=== PATIENT | male | born 1965 | race Caucasian/White ===

== ENCOUNTER 2016-10-29 00:35 | Emergency (ER) | payer BC ==
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
[2016-10-29] MEDS ORDERED: Sodium Chloride 0.9% 10 ML Syringe FLUSH PRN (02:13)
[2016-10-29] MEDS ORDERED: cefTRIAXone 1 GM in Sodium Chloride 0.9% 100 ML IV ONE (02:14)
[2016-10-29] MEDS ORDERED: Ciprofloxacin 0.3% Ophth Soln 2.5 ML Bottle EYERT ONE (02:39)
[2016-10-29] MEDS ORDERED: Acetaminophen/oxyCODONE 325-5 MG Tab PO ONE (02:39)
[2016-10-29] MEDS ORDERED: Ketorolac 0.5% Ophth Soln 5 ML Bottle EYERT ONE (02:40)
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
--- NOTE | 2016-10-29 07:53 | CT ---
CT paranasal sinuses Technique: Multiple axial sections were obtained through the paranasal sinuses. Reconstructed coronal and sagittal images were reviewed. Findings: Air-fluid level noted within the left frontal sinus. Mild areas of mucosal thickening are scattered within the ethmoid sinuses. Minimal mucosal thickening is seen within the sphenoid sinus. Opacification noted of the left maxillary sinus. Small air-fluid level is noted within the right maxillary sinus. Visualized mastoid sinuses are clear. Middle ear cavities are clear. Surrounding bony structures are intact. Left maxillary ostia is opacified with mucosal thickening. Impression: 1. Diffuse mucosal thickening as described above with several air-fluid levels compatible with sinusitis. Diagnostic code #3 I agree with preliminary report issued by Serious Parody (preliminary report dictated on 10/29/16, 2:57 AM Central Time)
== END 2016-10-29 03:20 | disposition home or self-care (01) ==
LOC: JD.ED 00:35
DX: J01.40 Acute pansinusitis, unspecified (principal); Z79.899 Other long term (current) drug therapy; E11.40 Type 2 diabetes mellitus with diabetic neuropathy, unspecified; Z79.4 Long term (current) use of insulin; I10 Essential (primary) hypertension; Z99.2 Dependence on renal dialysis
CPT/HCPCS: 36415; 70486; 71020; 80053; 83880; 85025; 86140; 87804; 96365; 99284; J0696; J7030; J7050

== ENCOUNTER 2018-01-14 07:23 | Day surgery (SDC) | payer BC ==
[~2018-01-14 07:23] MED LIST: Cefuroxime 10 MG/ML SYRINGE EYERT SCH; Lidocaine 1% PF 2 ML SDV INJECT SCH; Pilocarpine 4% Ophth Soln 15 ML Bot EYERT SCH
[2018-01-14] MEDS: Polymyxin B/Trimethoprim 10 ML Bottle EYERT SCH ×3 (07:33→08:56)
[2018-01-14] MEDS: Brimonidine 0.2% Ophth Soln 5 ML Bottle EYERT SCH ×3 (07:37→08:56)
[2018-01-14] MEDS: Phenylephrine 2.5% Ophth Soln 2 ML Bot EYERT SCH ×5 (07:41→08:41)
[2018-01-14] MEDS: Tropicamide 1% Ophth Soln 3 ML Bottle EYERT SCH ×4 (07:45→08:22)
--- NOTE | 2018-01-14 07:45 | PCM.PREANE ---
Preanesthetic Assessment - Anesthesia/Transfusion/Family Hx Anesthesia History: Prior Anesthesia Without Reaction Family History of Anesthesia Reaction: No Transfusion History: Prior Transfusion Without Reaction - Review of Systems General: No Symptoms Pulmonary: No Symptoms Cardiovascular: Dyspnea on Exertion Gastrointestinal: No Symptoms Neurological: Numbness (feet and hands) Other: Reports: Diabetes (DMII) - Physical Assessment NPO Status Date: 01/13/18 NPO Status Time: 21:00 Pulse: 78 O2 Sat by Pulse Oximetry: 95 Respiratory Rate: 16 Blood Pressure: 208/95 Temperature: 36.8 C Vital Signs: Last Vital Signs Temp 36.8 C 01/14/18 07:25 Pulse 78 01/14/18 07:25 Resp 16 01/14/18 07:25 BP 208/95 H 01/14/18 07:25 Pulse Ox 95 01/14/18 07:25 Height: 1.83 m Weight: 163.293 kg ASA Class: 3 Mental Status: Alert & Oriented x3 Airway Class: Mallampati = 3 Dentition: Reports: Normal Dentition Thyro-Mental Finger Breadths: 3 Mouth Opening Finger Breadths: 2 ROM/Head Extension: Full Lungs: Clear to Auscultation, Normal Respiratory Effort Cardiovascular: Regular Rate, Regular Rhythm - Allergies Allergies/Adverse Reactions: Allergies Allergy/AdvReac Type Severity Reaction Status Date / Time No Known Allergies Allergy Verified 01/13/18 15:29 - Blood Blood Available: No Product(s) Available: None - Anesthesia Plan Pre-Op Medication Ordered: None - Acknowledgements Anesthesia Type Planned: MAC Pt an Appropriate Candidate for the Planned Anesthesia: Yes Alternatives and Risks of Anesthesia Discussed w Pt/Guardian: Yes Pt/Guardian Understands and Agrees with Anesthesia Plan: Yes PreAnesthesia Questionnaire HEENT History: Reports: Other (See Below) Other HEENT History: left eye hemmorage-drained Cardiovascular History: Reports: Hypertension Genitourinary History: Reports: Dialysis, Diabetic Nephropathy Other Genitourinary History: m-w-f; dialysis shunt to the left inner wrist area ; also has a catheter to the left chest wall for dialysis and currently using both sites for dialysis Endocrine/Metabolic History: Reports: Diabetes, Type II Oncologic (Cancer) History: Reports: None - Past Surgical History GI Surgical History: Reports: Appendectomy, Colon, Other (See Below) Musculoskeletal Surgical History: Reports: Other (See Below) - HOME MEDS Home Medications: Home Meds amLODIPine [Norvasc] 10 mg PO DAILY 03/22/16 [History] Calcium Acetate [Calphron] 3 tab PO DAILY 01/13/18 [History] Insulin Aspart [NovoLOG] 1 - 50 units SQ ASDIRECTED PRN 01/13/18 [History] Insulin Glargine,Hum.Rec.Anlog [Toujeo Solostar] 55 units SQ QAM 01/13/18 [ History] Sevelamer Carbonate [Renvela] 800 mg PO DAILY 01/13/18 [History] - CURRENT (IN HOUSE) MEDS Current Meds: Current Medications Brimonidine Tartrate (Alphagan 0.2% Ophth Soln) 0 ml EYERT ASDIRECTED IVIS Stop: 01/14/18 18:00 Cefuroxime Sodium (Zinacef) 0 mg EYERT ASDIRECTED IVIS Stop: 01/14/18 18:00 Lidocaine HCl (Xylocaine-Mpf 1%) 0 ml INJECT ASDIRECTED IVIS Stop: 01/14/18 18:00 Phenylephrine HCl (Bull-Synephrine 2.5% Ophth Soln) 0 ml EYERT ASDIRECTED IVIS Stop: 01/14/18 18:00 Pilocarpine HCl (Pilocar 4% Ophth Soln) 0 ml EYERT ASDIRECTED IVIS Stop: 01/14/18 18:00 Polymyxin/Trimethoprim Sulfate (Polytrim Ophth Soln) 0 ml EYERT ASDIRECTED IVIS Stop: 01/14/18 18:00 Last Admin: 01/14/18 07:33 Dose: 1 drop Tetracaine HCl (Tetracaine 0.5% Steri-Unit Sophie) 0 ml EYERT ASDIRECTED IVIS Stop: 01/14/18 18:00 Tropicamide (Mydriacyl 1% Ophth Soln) 0 ml EYERT ASDIRECTED IVIS Stop: 01/14/18 18:00
[2018-01-14] MEDS: Tetracaine HCl/PF 0.5% 4 ML Bottle EYERT SCH ×2 (08:26→08:47)
[2018-01-14 10:14] VITALS: BP 208/95
--- NOTE | 2018-01-14 10:14 | PCM48HPAN ---
Post Anesthesia Note - EVALUATION WITHIN 48HRS OF ANESTHETIC Vital Signs in Normal Range: Yes Patient Participated in Evaluation: Yes Respiratory Function Stable: Yes Airway Patent: Yes Cardiovascular Function Stable: Yes Hydration Status Stable: Yes Pain Control Satisfactory: Yes Nausea and Vomiting Control Satisfactory: Yes Mental Status Recovered: Yes Pulse Rate: 78 Resp Rate: 20 Temperature: 36.8 C Blood Pressure: 208/95
== END 2018-01-14 09:10 | disposition home or self-care (01) ==
LOC: JD.SDS 07:23
PROVIDERS: ATTEND Ophthalmology
DX: H25.813 Combined forms of age-related cataract, bilateral (principal); H31.093 Other chorioretinal scars, bilateral; H35.373 Puckering of macula, bilateral; H02.831 Dermatochalasis of right upper eyelid; H02.834 Dermatochalasis of left upper eyelid; E10.3313 Type 1 diabetes mellitus with moderate nonproliferative diabetic retinopathy with macular edema, bilateral; I10 Essential (primary) hypertension; Z79.4 Long term (current) use of insulin; Z79.899 Other long term (current) drug therapy; Z90.49 Acquired absence of other specified parts of digestive tract; Z98.890 Other specified postprocedural states; Z83.518 Family history of other specified eye disorder
CPT/HCPCS: A9270-GY; C1780; J0697; J2001

== ENCOUNTER 2018-12-07 07:41 | Day surgery (SDC) | payer BC, OTHER ==
[2018-12-07] MEDS: Polymyxin B/Trimethoprim 10 ML Bottle EYELF SCH ×4 (08:18→10:24)
[2018-12-07] MEDS: Brimonidine 0.2% Ophth Soln 5 ML Bottle EYEBOTH SCH ×7 (08:23→10:38)
[2018-12-07] MEDS: Phenylephrine 2.5% Ophth Soln 2 ML Bot EYEBOTH SCH ×10 (08:28→10:01)
[2018-12-07] MEDS: Tropicamide 1% Ophth Soln 15 ML Bottle EYEBOTH SCH ×8 (08:33→09:32)
--- NOTE | 2018-12-07 08:38 | PCM.PREANE ---
Preanesthetic Assessment - Anesthesia/Transfusion/Family Hx Anesthesia History: Prior Anesthesia Without Reaction Family History of Anesthesia Reaction: No Transfusion History: Prior Transfusion Without Reaction - Review of Systems General: No Symptoms Pulmonary: No Symptoms Cardiovascular: No Symptoms Gastrointestinal: No Symptoms Neurological: No Symptoms Other: Reports: None - Physical Assessment NPO Status Date: 12/06/18 NPO Status Time: 18:00 Pulse: 68 O2 Sat by Pulse Oximetry: 96 Respiratory Rate: 16 Blood Pressure: 194/91 Temperature: 98.3 C Vital Signs: Last Vital Signs Temp 36.8 C 12/07/18 07:55 Pulse 68 12/07/18 07:55 Resp 16 12/07/18 07:55 BP 194/91 H 12/07/18 07:55 Pulse Ox 96 12/07/18 07:55 Height: 1.83 m Weight: 158.757 kg ASA Class: 3 Mental Status: Alert & Oriented x3 Airway Class: Mallampati = 3 Dentition: Reports: Normal Dentition Thyro-Mental Finger Breadths: 3 Mouth Opening Finger Breadths: 2 ROM/Head Extension: Full Lungs: Clear to Auscultation, Normal Respiratory Effort, Decreased Breath Sounds Cardiovascular: Regular Rate, Regular Rhythm - Allergies Allergies/Adverse Reactions: Allergies Allergy/AdvReac Type Severity Reaction Status Date / Time No Known Allergies Allergy Verified 12/06/18 14:43 - Anesthesia Plan Beta Kena: Propranolol Med Last Dose Date: 12/07/18 Med Last Dose Time: 08:30 - Acknowledgements Anesthesia Type Planned: MAC Pt an Appropriate Candidate for the Planned Anesthesia: Yes Alternatives and Risks of Anesthesia Discussed w Pt/Guardian: Yes Pt/Guardian Understands and Agrees with Anesthesia Plan: Yes PreAnesthesia Questionnaire HEENT History: Reports: Cataract, Other (See Below) Other HEENT History: left eye hemmorage-drained Cardiovascular History: Reports: Hypertension Respiratory History: Reports: None Gastrointestinal History: Reports: None Genitourinary History: Reports: Dialysis, Diabetic Nephropathy Other Genitourinary History: m-w-f; dialysis shunt to the left inner wrist area ; also has a catheter to the left chest wall for dialysis and currently using both sites for dialysis Endocrine/Metabolic History: Reports: Diabetes, Type I (BS 257 @ 0832) Oncologic (Cancer) History: Reports: None - Past Surgical History HEENT Surgical History: Reports: Cataract Surgery GI Surgical History: Reports: Appendectomy, Colon, Other (See Below) Musculoskeletal Surgical History: Reports: Other (See Below) - SUBSTANCE USE Smoking Status *Q: Never Smoker - HOME MEDS Home Medications: Home Meds Insulin Aspart [NovoLOG] 1 - 50 units SQ ASDIRECTED PRN 01/13/18 [History] Insulin Glargine,Hum.Rec.Anlog [Toujeo Solostar] 50 units SQ QAM 01/13/18 [ History] Sevelamer Carbonate [Renvela] 800 mg PO DAILY 01/13/18 [History] Propranolol [Inderal] 20 mg PO DAILY 12/06/18 [History] amLODIPine [Norvasc] 5 mg PO DAILY 12/06/18 [History] - CURRENT (IN HOUSE) MEDS Current Meds: Current Medications Brimonidine Tartrate (Alphagan 0.2% Ophth Soln) 0 ml EYEBOTH ASDIRECTED IVIS Stop: 12/07/18 18:00 Last Admin: 12/07/18 08:23 Dose: 1 drop Cefuroxime Sodium (Zinacef) 0 mg EYELF ASDIRECTED IVIS Stop: 12/07/18 18:00 Lidocaine HCl (Xylocaine-Mpf 1%) 0 ml INJECT ASDIRECTED IVIS Stop: 12/07/18 18:00 Phenylephrine HCl (Bull-Synephrine 2.5% Ophth Soln) 0 ml EYEBOTH ASDIRECTED IVIS Stop: 12/07/18 18:00 Last Admin: 12/07/18 08:28 Dose: 1 drop Pilocarpine HCl (Pilocar 4% Ophth Soln) 0 ml EYELF ASDIRECTED IVIS Stop: 12/07/18 18:00 Polymyxin/Trimethoprim Sulfate (Polytrim Ophth Soln) 0 ml EYELF ASDIRECTED IVIS Stop: 12/07/18 18:00 Last Admin: 12/07/18 08:18 Dose: 1 drop Tetracaine HCl (Tetracaine 0.5% Steri-Unit Sophie) 0 ml EYELF ASDIRECTED IVIS Stop: 12/07/18 18:00 Tropicamide (Mydriacyl 1% Ophth Soln) 0 ml EYEBOTH ASDIRECTED IVIS Stop: 12/10/18 18:00
[2018-12-07] MEDS: Cefuroxime 10 MG/ML SYRINGE EYELF SCH ×2 (09:29→10:20)
[2018-12-07] MEDS: Lidocaine 1% PF 2 ML SDV INJECT SCH ×2 (09:29→10:10)
[2018-12-07] MEDS: Tetracaine HCl/PF 0.5% 4 ML Bottle EYELF SCH ×3 (09:29→10:15)
[2018-12-07] MEDS: Pilocarpine 4% Ophth Soln 15 ML Bot EYELF SCH ×2 (09:30→10:24)
--- NOTE | 2018-12-07 10:38 | PCM48HPAN ---
Post Anesthesia Note - EVALUATION WITHIN 48HRS OF ANESTHETIC Vital Signs in Normal Range: Yes Patient Participated in Evaluation: Yes Respiratory Function Stable: Yes Airway Patent: Yes Cardiovascular Function Stable: Yes Hydration Status Stable: Yes Pain Control Satisfactory: Yes Nausea and Vomiting Control Satisfactory: Yes Mental Status Recovered: Yes Pulse Rate: 68 Resp Rate: 16 Temperature: 98.3 C Blood Pressure: 194/91
[2018-12-07 10:54] VITALS: BP 171/79
== END 2018-12-07 10:45 | disposition home or self-care (01) ==
LOC: JD.SDS 07:41
PROVIDERS: ATTEND Ophthalmology
DX: E10.36 Type 1 diabetes mellitus with diabetic cataract (principal); H25.812 Combined forms of age-related cataract, left eye; H21.42 Pupillary membranes, left eye; H21.81 Floppy iris syndrome; H26.491 Other secondary cataract, right eye; H31.093 Other chorioretinal scars, bilateral; H35.373 Puckering of macula, bilateral; H02.834 Dermatochalasis of left upper eyelid; H02.831 Dermatochalasis of right upper eyelid; H52.31 Anisometropia; I10 Essential (primary) hypertension; E10.3293 Type 1 diabetes mellitus with mild nonproliferative diabetic retinopathy without macular edema, bilateral; E10.21 Type 1 diabetes mellitus with diabetic nephropathy; Z99.2 Dependence on renal dialysis; Z96.1 Presence of intraocular lens; Z98.41 Cataract extraction status, right eye; Z79.899 Other long term (current) drug therapy
CPT/HCPCS: 66821; 66982; A9270; C1780; J0697; J2001; 82962

== ENCOUNTER 2018-12-17 23:20 | Emergency (ER) | payer BC ==
[2018-12-17 23:32] VITALS: BP 203/97
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
[2018-12-18] MEDS ORDERED: Doxycycline 100 MG Cap PO ONE (02:09)
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
== END 2018-12-18 02:17 | disposition home or self-care (01) ==
LOC: JD.ED 23:20
DX: J40 Bronchitis, not specified as acute or chronic (principal); I12.0 Hypertensive chronic kidney disease with stage 5 chronic kidney disease or end stage renal disease; E11.22 Type 2 diabetes mellitus with diabetic chronic kidney disease; N18.6 End stage renal disease; E11.21 Type 2 diabetes mellitus with diabetic nephropathy; Z79.4 Long term (current) use of insulin; Z79.899 Other long term (current) drug therapy; Z99.2 Dependence on renal dialysis
CPT/HCPCS: 36415; 71046; 80048; 85007; 85027; 99285; A9270; 99283

== ENCOUNTER 2019-06-05 13:33 | Emergency (ER) | payer BC ==
[~2019-06-05 13:33] MED LIST changes: +Amiodarone/Dextrose,Iso-Osmotic 150 MG/100 ML Premix Bag IV ONE; +Amiodarone/Dextrose,Iso-Osmotic 360 MG/200 ML Premix Bag ONE; -Cefuroxime 10 MG/ML SYRINGE EYERT SCH; +EPINEPHrine 1:10,000 1 MG/10 ML Syringe ONE; -Lidocaine 1% PF 2 ML SDV INJECT SCH; -Pilocarpine 4% Ophth Soln 15 ML Bot EYERT SCH; +Sodium Bicarbonate 8.4% 50 MEQ/50 ML Syringe ONE
[2019-06-05] MEDS ORDERED: Midazolam 1 MG/ML 2 ML SDV ONE (14:02)
[2019-06-05] MEDS ORDERED: fentaNYL 100 MCG/2 ML SDV ONE ×2 (14:03)
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
--- NOTE | 2019-06-05 14:29 | PCM.SN ---
- Free Text/Narrative Note: Called for assistance with Code Blue in Progress. Mr. Berg was intubated by the ER physician previously. Assistance requested for IV placement. AV fistula noted on the left arm. 20 ga IV placed, right wrist, standard technique, secured with transparent dressing and tape.
[2019-06-05] MEDS ORDERED: DOBUTamine/Dextrose 5%-Water 250 MG/250 ML BAG ONE (14:35)
--- NOTE | 2019-06-05 15:03 | CR ---
Chest: Portable view of the chest was obtained. Comparison: Prior chest x-ray at 12/18/18. Increased density is noted within the right base from prior study most likely representing right lower lobe collapse versus atelectasis and pneumonia. Heart is enlarged. Left lung is clear. Pulmonary vessels may be slightly congested. Upper mediastinum is widened which is slightly more prominent than on prior study which may relate to differences in technique but difficult to exclude adenopathy. Bony structures are grossly intact. Endotracheal tube is seen with tip lying between the clavicles and zeynep in satisfactory position. Nasogastric tube appears to be present with distal end not being optimally identified. Impression: 1. Satisfactory position of endotracheal tube. Possible nasogastric tube with distal end not being optimally seen. 2. Focal density within the right lung base representing either right lower lobe collapse versus atelectasis and pneumonia. 3. Heart is enlarged with mild pulmonary vascular congestion. 4. Slightly widened upper mediastinum most which appears chronic but difficult to exclude adenopathy. Note: When patient's clinical condition improves, chest CT could be obtained to further evaluate. Diagnostic code #3
[2019-06-05] MEDS ORDERED: EPINEPHrine 1:10,000 1 MG/10 ML Syringe ONE (15:46)
[2019-06-05 18:30] VITALS: BP 165/76; PULSE 62
== END 2019-06-05 16:00 ==
LOC: JD.ED 13:33
DX: I46.9 Cardiac arrest, cause unspecified (principal); E11.22 Type 2 diabetes mellitus with diabetic chronic kidney disease; I12.0 Hypertensive chronic kidney disease with stage 5 chronic kidney disease or end stage renal disease; N18.6 End stage renal disease; H26.9 Unspecified cataract; E11.21 Type 2 diabetes mellitus with diabetic nephropathy; Z99.2 Dependence on renal dialysis; Z79.4 Long term (current) use of insulin; Z79.899 Other long term (current) drug therapy
CPT/HCPCS: 31500; 36415; 36556; 36680; 51702; 71045; 80053; 82009; 83605; 83930; 84484; 85025; 92950; 96365; 96366; 96368; 96375; 96376; 99291; 99292; J0171; J0282; J1250; J2250; J3010; 93010

== ENCOUNTER 2019-08-23 16:40 | Emergency (ER) | payer BC ==
[2019-08-23 16:55] VITALS: BP 153/78; PULSE 81
--- NOTE | 2019-08-23 17:24 | EDM.PDOC ---
ED HPI GENERAL MEDICAL PROBLEM - General Chief Complaint: General Stated Complaint: URINE PROBLEMS Time Seen by Provider: 08/23/19 17:23 - History of Present Illness INITIAL COMMENTS - FREE TEXT/NARRATIVE: 54-year-old male presents to the emergency room, sent over by dialysis as he had wet sounding lungs. The patient was at dialysis today and according to the dialysis staff had wet sounding lungs. The patient survived cardiac arrest multiple times in May and spent 51 days at [facility] after being resuscitated twice here. He was discharged from the hospital a couple of weeks ago and he was using nighttime oxygen at 2 to 3 L and oxygen with activity. Now he is using oxygen all the time at 5 L occasionally more. According to family he has been chilled at times. Patient has type 2 diabetes on insulin therapy end-stage renal failure - Related Data Allergies Allergy/AdvReac Type Severity Reaction Status Date / Time No Known Allergies Allergy Verified 08/23/19 16:55 Home Meds: Home Meds Insulin Aspart [NovoLOG] 1 - 13 units SQ ASDIRECTED PRN 01/13/18 [History] Insulin Glargine,Hum.Rec.Anlog [Toujeo Solostar] 45 units SQ QAM 01/13/18 [ History] amLODIPine [Norvasc] 10 mg PO DAILY 12/06/18 [History] Aspirin 81 mg PO DAILY 08/23/19 [History] Calcium Acetate 1,334 mg PO TID 08/23/19 [History] Cephalexin [Keflex] 250 mg PO Q12H #18 capsule 08/23/19 [Rx] Gabapentin [Neurontin] 300 mg PO TID 08/23/19 [History] Magnesium Oxide mg PO DAILY 08/23/19 [History] Metoprolol Succinate 12.5 mg PO BID 08/23/19 [History] amLODIPine [Norvasc] 10 mg PO DAILY 08/23/19 [History] atorvaSTATin [Lipitor] mg PO DAILY 08/23/19 [History] traZODone HCl [Trazodone HCl] 50 mg PO BEDTIME 08/23/19 [History] Past Medical History HEENT History: Reports: Cataract, Other (See Below) Other HEENT History: left eye hemmorage-drained Cardiovascular History: Reports: Hypertension, Other (See Below) Other Cardiovascular History: cardiac arrest May 2019, intubated Respiratory History: Reports: None, Intubation, Previous Gastrointestinal History: Reports: None Genitourinary History: Reports: Chronic Renal Insuffiency, Dialysis, Diabetic Nephropathy Other Genitourinary History: dialysis shunt to the left inner wrist area; also has a catheter to the left chest wall for dialysis and currently using both sites for dialysis Endocrine/Metabolic History: Reports: Diabetes, Type II Oncologic (Cancer) History: Reports: None - Past Surgical History HEENT Surgical History: Reports: Cataract Surgery GI Surgical History: Reports: Appendectomy, Colon, Other (See Below) Other GI Surgeries/Procedures: fistula repair Musculoskeletal Surgical History: Reports: Other (See Below) Social & Family History - Family History Family Medical History: Noncontributory - Tobacco Use Smoking Status *Q: Never Smoker - Caffeine Use Caffeine Use: Reports: None - Recreational Drug Use Recreational Drug Use: No - Living Situation & Occupation Living situation: Reports: Single Occupation: Unemployed ED ROS GENERAL - Review of Systems Review Of Systems: See Below Constitutional: Reports: Chills HEENT: Reports: No Symptoms Respiratory: Reports: Shortness of Breath, Other (Used oxygen use) Cardiovascular: Reports: Edema. Denies: Chest Pain Endocrine: Reports: High Glucose GI/Abdominal: Reports: Other (Patient has morbid obesity). Denies: Abdominal Pain, Constipation, Diarrhea, Nausea, Vomiting : Reports: Other (He is having increased drainage from the urethra) Skin: Reports: No Symptoms Neurological: Reports: No Symptoms Psychiatric: Reports: No Symptoms Hematologic/Lymphatic: Reports: No Symptoms Immunologic: Reports: No Symptoms ED EXAM, GENERAL - Physical Exam Exam: See Below Exam Limited By: No Limitations General Appearance: Alert, No Apparent Distress Eye Exam: Bilateral Eye: Normal Inspection, PERRL Ears: Normal External Exam, Normal Canal, Hearing Grossly Normal, Normal TMs Throat/Mouth: Normal Inspection, Normal Lips, Normal Gums, Normal Oropharynx, Normal Voice, No Airway Compromise Head: Atraumatic, Normocephalic Neck: Normal Inspection, Supple, Non-Tender, Full Range of Motion Respiratory/Chest: No Respiratory Distress, Decreased Breath Sounds, Other ( Right lung base has minimal breath sounds just above this he has crackles) Cardiovascular: Regular Rate, Rhythm, No Murmur GI/Abdominal: Normal Bowel Sounds, Soft, Non-Tender, Other (Significant obesity multiple scars from surgeries) Extremities: Pedal Edema (3+ pitting) Neurological: Alert, Oriented, Normal Cognition Psychiatric: Normal Affect, Normal Mood Skin Exam: Warm, Dry, Intact Lymphatic: No Adenopathy Course - Vital Signs Last Recorded V/S: Last Vital Signs Temp 36.7 C 08/23/19 16:52 Pulse 81 08/23/19 16:52 Resp 18 08/23/19 16:52 BP 153/78 H 08/23/19 16:52 Pulse Ox 96 08/23/19 16:52 - Orders/Labs/Meds Orders: Active Orders 24 hr Category Date Time Status Insert Gatica Catheter [Insert Urinary Catheter] [OM.PC] Care 08/23/19 18:48 Ordered Stat Urinary Catheter Assessment [RC] ASDIRECTED Care 08/23/19 18:51 Active Chest 1V Frontal [CR] Stat Exams 08/23/19 17:42 Taken Chest wo Cont [CT] Stat Exams 08/23/19 18:32 Taken CULTURE BLOOD [BC] Stat Lab 08/23/19 18:05 Received CULTURE BLOOD [BC] Stat Lab 08/23/19 18:19 Received CULTURE URINE [RM] Stat Lab 08/23/19 20:30 Ordered Blood Culture x2 Reflex Set [OM.PC] Stat Oth 08/23/19 17:42 Ordered Labs: Laboratory Tests 08/23/19 08/23/19 08/23/19 Range/Units 18:05 18:05 18:05 WBC 7.05 (4.23-9.07) K/mm3 RBC 3.68 L (4.63-6.08) M/mm3 Hgb 10.7 L (13.7-17.5) gm/dl Hct 34.5 L (40.1-51.0) % MCV 93.8 H D (79.0-92.2) fl MCH 29.1 (25.7-32.2) pg MCHC 31.0 L (32.2-35.5) g/dl RDW Std Deviation 47.1 H (35.1-43.9) fL Plt Count 198 (163-337) K/mm3 MPV 9.8 (9.4-12.3) fl Neutrophils % (Manual) 72 H (40-60) % Band Neutrophils % 0 (0-10) % Lymphocytes % (Manual) 17 L (20-40) % Atypical Lymphs % 0 % Monocytes % (Manual) 7 (2-10) % Eosinophils % (Manual) 2 (0.8-7.0) % Basophils % (Manual) 2 H (0.2-1.2) Platelet Estimate Adequate RBC Morph Comment Normal Sodium 136 (136-145) mEq/L Potassium 3.8 (3.5-5.1) mEq/L Chloride 95 L (98-107) mEq/L Carbon Dioxide 29 (21-32) mEq/L Anion Gap 15.8 H (5-15) BUN 37 H (7-18) mg/dL Creatinine 5.0 H (0.7-1.3) mg/dL Est Cr Clr Drug Dosing 18.54 mL/min Estimated GFR (MDRD) 12 (>60) mL/min BUN/Creatinine Ratio 7.4 L (14-18) Glucose 264 H (74-106) mg/dL Lactic Acid 0.4 (0.4-2.0) mmol/L Calcium 8.7 (8.5-10.1) mg/dL Total Bilirubin 0.8 (0.2-1.0) mg/dL AST 13 L (15-37) U/L ALT 27 (16-63) U/L Alkaline Phosphatase 238 H (46-116) U/L Total Protein 8.4 H (6.4-8.2) g/dl Albumin 3.6 (3.4-5.0) g/dl Globulin 4.8 gm/dL Albumin/Globulin Ratio 0.8 L (1-2) Urine Color (Yellow) Urine Appearance (Clear) Urine pH Ur Specific [place] Urine Protein Urine Glucose (UA) Urine Ketones Urine Occult Blood Urine Nitrite Urine Bilirubin Urine Urobilinogen Ur Leukocyte Esterase Urine RBC (0-5) /hpf Urine WBC (0-5) /hpf Ur Squamous Epith Cells (0-5) /hpf Urine Bacteria 08/23/19 Range/Units 18:48 WBC (4.23-9.07) K/mm3 RBC (4.63-6.08) M/mm3 Hgb (13.7-17.5) gm/dl Hct (40.1-51.0) % MCV (79.0-92.2) fl MCH (25.7-32.2) pg MCHC (32.2-35.5) g/dl RDW Std Deviation (35.1-43.9) fL Plt Count (163-337) K/mm3 MPV (9.4-12.3) fl Neutrophils % (Manual) (40-60) % Band Neutrophils % (0-10) % Lymphocytes % (Manual) (20-40) % Atypical Lymphs % % Monocytes % (Manual) (2-10) % Eosinophils % (Manual) (0.8-7.0) % Basophils % (Manual) (0.2-1.2) Platelet Estimate RBC Morph Comment Sodium (136-145) mEq/L Potassium (3.5-5.1) mEq/L Chloride (98-107) mEq/L Carbon Dioxide (21-32) mEq/L Anion Gap (5-15) BUN (7-18) mg/dL Creatinine (0.7-1.3) mg/dL Est Cr Clr Drug Dosing mL/min Estimated GFR (MDRD) (>60) mL/min BUN/Creatinine Ratio (14-18) Glucose (74-106) mg/dL Lactic Acid (0.4-2.0) mmol/L Calcium (8.5-10.1) mg/dL Total Bilirubin (0.2-1.0) mg/dL AST (15-37) U/L ALT (16-63) U/L Alkaline Phosphatase (46-116) U/L Total Protein (6.4-8.2) g/dl Albumin (3.4-5.0) g/dl Globulin gm/dL Albumin/Globulin Ratio (1-2) Urine Color Yellow (Yellow) Urine Appearance Turbid H (Clear) Urine pH TNP Ur Specific [place] TNP Urine Protein TNP Urine Glucose (UA) TNP Urine Ketones TNP Urine Occult Blood TNP Urine Nitrite TNP Urine Bilirubin TNP Urine Urobilinogen TNP Ur Leukocyte Esterase TNP Urine RBC 5-10 H (0-5) /hpf Urine WBC Too numerous to cnt H (0-5) /hpf Ur Squamous Epith Cells Not seen (0-5) /hpf Urine Bacteria TNP - Re-Assessments/Exams Free Text/Narrative Re-Assessment/Exam: 08/23/19 20:01 Treated with suspicious for an effusion on the right side fairly good size with either atelectasis or pneumonia above the fissure CT was obtained to clarify this results still pending. We did get a catheterized specimen from his urethra that revealed about 30 cc of exudative material cultures ordered. 08/23/19 20:[address] shows fairly stable effusion on the right with worsening atelectasis in the right lung this could be contributing to his increased need for oxygen. The patient still has his I-S unit from when he was in the hospital he is advised to use this every couple hours while awake and have close clinical follow-up. For the suspected infected bladder mucus he will be started on cephalexin 250 mg twice daily on the days he takes dialysis he will dose this after the dialysis. This can be adjusted after we review the culture and sensitivity Departure - Departure Time of Disposition: 20:38 Disposition: DC/Tfer to [id number] Clinical Impression: Atelectasis of right lung, Infection of bladder - Discharge Information Prescriptions: Cephalexin [Keflex] 250 mg PO Q12H #18 capsule Referrals: PCP,None [Primary Care Provider] - Forms: ED Department Discharge Additional Instructions: Return to the emergency room with any questions problems or worsening symptoms. Take the Keflex or cephalexin, as directed 1 twice daily on the days you have dialysis be sure and take 1 immediately after your dialysis. The breathing device they sent you home with from the hospital use every couple hours while awake keep track your oxygen use hopefully will start decreasing with this as your lungs open up more. Follow-up with your regular physician, Dr. Guajardo, within a week. Sepsis Event Note - Evaluation Sepsis Screening Result: No Definite Risk - Focused Exam Vital Signs: Vital Signs Temp Pulse Resp BP Pulse Ox 08/23/19 16:52 36.7 C 81 18 153/78 H 96 Date Exam was Performed: 08/23/19 Time Exam was Performed: 20:36 - My Orders Last 24 Hours: My Active Orders 08/23/19 17:42 Chest 1V Frontal [CR] Stat Blood Culture x2 Reflex Set [OM.PC] Stat 08/23/19 18:05 CULTURE BLOOD [BC] Stat 08/23/19 18:19 CULTURE BLOOD [BC] Stat 08/23/19 18:32 Chest wo Cont [CT] Stat 08/23/19 18:48 Insert Gatica Catheter [Insert Urinary Catheter] [OM.PC] Stat 08/23/19 18:51 Urinary Catheter Assessment [RC] ASDIRECTED 08/23/19 20:30 CULTURE URINE [RM] Stat - Assessment/Plan Last 24 Hours: My Active Orders 08/23/19 17:42 Chest 1V Frontal [CR] Stat Blood Culture x2 Reflex Set [OM.PC] Stat 08/23/19 18:05 CULTURE BLOOD [BC] Stat 08/23/19 18:19 CULTURE BLOOD [BC] Stat 08/23/19 18:32 Chest wo Cont [CT] Stat 08/23/19 18:48 Insert Gatica Catheter [Insert Urinary Catheter] [OM.PC] Stat 08/23/19 18:51 Urinary Catheter Assessment [RC] ASDIRECTED 08/23/19 20:30 CULTURE URINE [RM] Stat
[2019-08-23] MEDS ORDERED: Cephalexin 250 MG Cap PO ONE (20:44)
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
== END 2019-08-23 21:00 ==
LOC: JD.ED 16:40
DX: N30.90 Cystitis, unspecified without hematuria (principal); J98.11 Atelectasis; I12.9 Hypertensive chronic kidney disease with stage 1 through stage 4 chronic kidney disease, or unspecified chronic kidney disease; E11.22 Type 2 diabetes mellitus with diabetic chronic kidney disease; N18.9 Chronic kidney disease, unspecified; E11.21 Type 2 diabetes mellitus with diabetic nephropathy; Z79.4 Long term (current) use of insulin; Z79.82 Long term (current) use of aspirin; Z79.899 Other long term (current) drug therapy
CPT/HCPCS: 36415; 71045; 71250; 80053; 81001; 83605; 85007; 85027; 87040; 87086; 87088; 87186; 87804; 99284; A9270

== ENCOUNTER 2019-08-27 19:27 | Emergency (ER) | payer BC ==
[2019-08-27 19:37] VITALS: BP 171/68; PULSE 86
--- NOTE | 2019-08-27 19:44 | EDM.PDOC ---
ED HPI GENERAL MEDICAL PROBLEM - General Chief Complaint: Respiratory Problem Stated Complaint: [facility] Time Seen by Provider: 08/27/19 19:34 - History of Present Illness INITIAL COMMENTS - FREE TEXT/NARRATIVE: 54-year-old male presents the emergency room with shortness of breath. Patient had dialysis today and then after dialysis went home and remains somewhat short of breath. The patient did not feel right at the completion of dialysis. And he just was not doing well at home when EMS checked on him his saturations were quite low in the 60s. This did respond to supplemental oxygen he was transported to the emergency room. In all this the patient has not had any chest pain chest pressure or other anginal equivalents. The patient has end -stage renal disease secondary to diabetic nephropathy. Has not had any fevers or cough. - Related Data Allergies Allergy/AdvReac Type Severity Reaction Status Date / Time No Known Allergies Allergy Verified 08/27/19 19:36 Home Meds: Home Meds Insulin Aspart [NovoLOG] 1 - 13 units SQ ASDIRECTED PRN 01/13/18 [History] Insulin Glargine,Hum.Rec.Anlog [Toujeo Solostar] 45 units SQ QAM 01/13/18 [ History] Aspirin 81 mg PO DAILY 08/23/19 [History] Calcium Acetate 1,334 mg PO TID 08/23/19 [History] Cephalexin [Keflex] 250 mg PO Q12H #18 capsule 08/23/19 [Rx] Gabapentin [Neurontin] 300 mg PO TID 08/23/19 [History] Magnesium Oxide 250 mg PO DAILY 08/23/19 [History] Metoprolol Succinate 12.5 mg PO BID 08/23/19 [History] amLODIPine [Norvasc] 10 mg PO DAILY 08/23/19 [History] atorvaSTATin [Lipitor] 10 mg PO DAILY 08/23/19 [History] traZODone HCl [Trazodone HCl] 50 mg PO BEDTIME PRN 08/23/19 [History] Past Medical History HEENT History: Reports: Cataract, Other (See Below) Other HEENT History: left eye hemmorage-drained Cardiovascular History: Reports: Hypertension, Other (See Below) Other Cardiovascular History: cardiac arrest May 2019, intubated Respiratory History: Reports: None, Intubation, Previous Gastrointestinal History: Reports: None Genitourinary History: Reports: Chronic Renal Insuffiency, Dialysis, Diabetic Nephropathy Other Genitourinary History: dialysis shunt to the left inner wrist area; also has a catheter to the left chest wall for dialysis and currently using both sites for dialysis Endocrine/Metabolic History: Reports: Diabetes, Type II Oncologic (Cancer) History: Reports: None - Past Surgical History HEENT Surgical History: Reports: Cataract Surgery GI Surgical History: Reports: Appendectomy, Colon, Other (See Below) Other GI Surgeries/Procedures: fistula repair Musculoskeletal Surgical History: Reports: Other (See Below) Social & Family History - Family History Family Medical History: Noncontributory - Caffeine Use Caffeine Use: Reports: None - Living Situation & Occupation Living situation: Reports: Single Occupation: Unemployed ED ROS GENERAL - Review of Systems Review Of Systems: See Below Constitutional: Reports: No Symptoms HEENT: Reports: No Symptoms Respiratory: Reports: Shortness of Breath. Denies: No Symptoms, Wheezing, Pleuritic Chest Pain, Cough, Sputum, Hemoptysis Cardiovascular: Reports: No Symptoms Endocrine: Reports: No Symptoms GI/Abdominal: Reports: No Symptoms : Reports: No Symptoms Musculoskeletal: Reports: No Symptoms Skin: Reports: No Symptoms Neurological: Reports: No Symptoms ED EXAM, GENERAL - Physical Exam Exam: See Below Exam Limited By: No Limitations General Appearance: Alert, No Apparent Distress Head: Atraumatic, Normocephalic Neck: Normal Inspection, Supple, Non-Tender, Full Range of Motion Respiratory/Chest: No Respiratory Distress, Lungs Clear, Normal Breath Sounds Cardiovascular: Regular Rate, Rhythm, Other (3+ pitting edema in the lower extremities.) GI/Abdominal: Normal Bowel Sounds, Soft, Non-Tender, Other (Updates to have some ascites) (Male) Exam: No Hernia Rectal (Males) Exam: Normal Exam Back Exam: Normal Inspection Extremities: Pedal Edema (3+ pitting edema) Neurological: Alert, Oriented, Normal Cognition EKG INTERPRETATION Rhythm: Other (Sinus with frequent unifocal PVCs. He has a first-degree AV block) [place]: LAD-Left [place] Deviation P-Wave: Present QRS: Other (Reticular conduction delay) ST-T: Normal ([place] nondiagnostic changes) QT: Normal Comparison: Change From Previous EKG EKG Interpretation Comments: Normal EKG His last EKG showed atrial fib with frequent PVCs this was a postarrest study not a reasonable comparison Course - Vital Signs Last Recorded V/S: Last Vital Signs Temp 38.0 C 08/27/19 19:29 Pulse 86 08/27/19 19:29 Resp 19 08/27/19 19:29 BP 171/68 H 08/27/19 19:29 Pulse Ox 96 08/27/19 19:29 - Orders/Labs/Meds Orders: Active Orders 24 hr Category Date Time Status EKG Documentation Completion [RC] STAT Care 08/27/19 19:47 Active Ang Chest [CT] Stat Exams 08/27/19 21:20 Taken Chest 1V Frontal [CR] Stat Exams 08/27/19 19:44 Taken CULTURE BLOOD [BC] Stat Lab 08/27/19 18:10 Received CULTURE BLOOD [BC] Stat Lab 08/27/19 20:27 Received Sodium Chloride 0.9% [Normal Saline] 100 ml Med 08/27/19 21:45 Active IV ASDIRECTED Sodium Chloride 0.9% [Saline Flush] Med 08/27/19 21:31 Active 10 ml FLUSH ONETIME PRN Blood Culture x2 Reflex Set [OM.PC] Stat Oth 08/27/19 19:57 Ordered Medication Orders Sodium Chloride (Normal Saline) 100 mls @ 80 mls/hr IV ASDIRECTED IVIS Last Admin: 08/27/19 22:32 Dose: 80 mls/hr Sodium Chloride (Saline Flush) 10 ml FLUSH ONETIME PRN PRN Reason: KEEP VEIN OPEN Last Admin: 08/27/19 22:32 Dose: 10 ml Labs: Laboratory Tests 08/27/19 08/27/19 08/27/19 Range/Units 18:10 19:57 19:57 WBC 5.71 (4.23-9.07) K/mm3 RBC 3.68 L (4.63-6.08) M/mm3 Hgb 10.5 L (13.7-17.5) gm/dl Hct 34.7 L (40.1-51.0) % MCV 94.3 H (79.0-92.2) fl MCH 28.5 (25.7-32.2) pg MCHC 30.3 L (32.2-35.5) g/dl RDW Std Deviation 46.5 H (35.1-43.9) fL Plt Count 230 (163-337) K/mm3 MPV 9.2 L (9.4-12.3) fl Neutrophils % (Manual) 63 H (40-60) % Band Neutrophils % 0 (0-10) % Lymphocytes % (Manual) 21 (20-40) % Atypical Lymphs % 0 % Monocytes % (Manual) 15 H (2-10) % Eosinophils % (Manual) 1 (0.8-7.0) % Basophils % (Manual) 0 L (0.2-1.2) Platelet Estimate Adequate Macrocytosis 1+ slight Ovalocytes 1+ slight RBC Morph Comment Not Reportable PT 12.5 H (9.7-12.0) SECONDS INR 1.16 APTT 27 (22-31) SECONDS Puncture Site ABG pH (7.35-7.45) ABG pCO2 (35.0-45.0) mmHg ABG pO2 (80.0-100.0) mmHg ABG HCO3 (22.0-26.0) meq/L ABG O2 Saturation (96.0-97.0) % ABG Base Excess (-2-2.0) Derrick Test O2 Delivery Device Oxygen Flow Rate Sodium (136-145) mEq/L Potassium (3.5-5.1) mEq/L Chloride (98-107) mEq/L Carbon Dioxide (21-32) mEq/L Anion Gap (5-15) BUN (7-18) mg/dL Creatinine (0.7-1.3) mg/dL Est Cr Clr Drug Dosing mL/min Estimated GFR (MDRD) (>60) mL/min BUN/Creatinine Ratio (14-18) Glucose (74-106) mg/dL Lactic Acid 0.7 (0.4-2.0) mmol/L Calcium (8.5-10.1) mg/dL Total Bilirubin (0.2-1.0) mg/dL AST (15-37) U/L ALT (16-63) U/L Alkaline Phosphatase (46-116) U/L Troponin I (0.00-0.056) ng/mL NT-Pro-B Natriuret Pep (0-125) pg/mL Total Protein (6.4-8.2) g/dl Albumin (3.4-5.0) g/dl Globulin gm/dL Albumin/Globulin Ratio (1-2) 08/27/19 08/27/1920 Range/Units 19:57 19:57 20:40 WBC (4.23-9.07) K/mm3 RBC (4.63-6.08) M/mm3 Hgb (13.7-17.5) gm/dl Hct (40.1-51.0) % MCV (79.0-92.2) fl MCH (25.7-32.2) pg MCHC (32.2-35.5) g/dl RDW Std Deviation (35.1-43.9) fL Plt Count (163-337) K/mm3 MPV (9.4-12.3) fl Neutrophils % (Manual) (40-60) % Band Neutrophils % (0-10) % Lymphocytes % (Manual) (20-40) % Atypical Lymphs % % Monocytes % (Manual) (2-10) % Eosinophils % (Manual) (0.8-7.0) % Basophils % (Manual) (0.2-1.2) Platelet Estimate Macrocytosis Ovalocytes RBC Morph Comment PT (9.7-12.0) SECONDS INR APTT (22-31) SECONDS Puncture Site Rt radial ABG pH 7.40 (7.35-7.45) ABG pCO2 47.3 H (35.0-45.0) mmHg ABG pO2 80.0 (80.0-100.0) mmHg ABG HCO3 28.9 H (22.0-26.0) meq/L ABG O2 Saturation 93.4 L (96.0-97.0) % ABG Base Excess 4.1 H (-2-2.0) Derrick Test positive O2 Delivery Device Nonrebmask Oxygen Flow Rate 12.0 Sodium 136 (136-145) mEq/L Potassium 3.7 (3.5-5.1) mEq/L Chloride 97 L (98-107) mEq/L Carbon Dioxide 30 (21-32) mEq/L Anion Gap 12.7 (5-15) BUN 24 H (7-18) mg/dL Creatinine 4.2 H (0.7-1.3) mg/dL Est Cr Clr Drug Dosing 22.72 mL/min Estimated GFR (MDRD) 15 (>60) mL/min BUN/Creatinine Ratio 5.7 L (14-18) Glucose 264 H (74-106) mg/dL Lactic Acid (0.4-2.0) mmol/L Calcium 8.8 (8.5-10.1) mg/dL Total Bilirubin 1.0 (0.2-1.0) mg/dL AST 18 (15-37) U/L ALT 28 (16-63) U/L Alkaline Phosphatase 284 H (46-116) U/L Troponin I < 0.017 (0.00-0.056) ng/mL NT-Pro-B Natriuret Pep 6275 H (0-125) pg/mL Total Protein 7.9 (6.4-8.2) g/dl Albumin 3.2 L (3.4-5.0) g/dl Globulin 4.7 gm/dL Albumin/Globulin Ratio 0.7 L (1-2) Meds: Medications Generic Name Dose Route Start Last Admin Trade Name Freq PRN Reason Stop Dose Admin Sodium Chloride 100 mls @ 80 mls/hr 08/27/19 21:45 08/27/19 22:32 Normal Saline IV 80 mls/hr ASDIRECTED IVIS Administration Sodium Chloride 10 ml 08/27/19 21:31 08/27/19 22:32 Saline Flush FLUSH 10 ml ONETIME PRN Administration KEEP VEIN OPEN Discontinued Medications Generic Name Dose Route Start Last Admin Trade Name Freq PRN Reason Stop Dose Admin Iopamidol 100 ml 08/27/19 21:31 08/27/19 22:32 Isovue-370 (76%) IVPUSH 08/27/19 21:32 100 ml ONETIME ONE Administration - Re-Assessments/Exams Free Text/Narrative Re-Assessment/Exam: 08/27/19 22:19 Labs nondiagnostic ABGs obtained. Chest x-ray is unchanged from what it was prior earlier this week. Patient's case was discussed with Dr. Soliman hospitalist at [facility] in [place] accepted the patient in transfer however he like the patient to go through the emergency room and he would like the patient to have a CTA prior to this and then we can phone him with the results. Radiology will forward images. Case also discussed with Dr. Lynn ER physician , who will be waiting for the patient in the emergency room. 08/27/19 22:58 T of the chest was done which shows continued moderate right pleural effusion the right basilar and middle lobe atelectasis or pneumonia is still present no mention of change. Case discussed with Dr. Soliman will proceed with the transfer as stated above did discuss starting on antibiotics in the certainly agree with holding off at this point with no white count no cough no fever. Departure - Departure Time of Disposition: 22:16 Disposition: DC/Tfer to [facility] 02 Clinical Impression: Hypoxia, Poorly controlled type 2 diabetes mellitus Renal failure Qualifiers: Renal failure chronicity: chronic Chronic kidney disease stage: on chronic dialysis Qualified Code(s): N18.6 - End stage renal disease - Discharge Information Referrals: Santino Guajardo MD [Primary Care Provider] - Forms: ED Department Discharge Sepsis Event Note - Focused Exam Vital Signs: Vital Signs Temp Pulse Resp BP Pulse Ox 08/27/19 19:29 38.0 C 86 19 171/68 H 96 Date Exam was Performed: 08/27/19 Time Exam was Performed: 22:57 - My Orders Last 24 Hours: My Active Orders 08/27/19 18:10 CULTURE BLOOD [BC] Stat 08/27/19 19:44 Chest 1V Frontal [CR] Stat 08/27/19 19:47 EKG Documentation Completion [RC] STAT 08/27/19 19:57 Blood Culture x2 Reflex Set [OM.PC] Stat 08/27/19 20:27 CULTURE BLOOD [BC] Stat 08/27/19 21:20 Ang Chest [CT] Stat 08/27/19 21:31 Sodium Chloride 0.9% [Saline Flush] 10 ml FLUSH ONETIME PRN 08/27/19 21:45 Sodium Chloride 0.9% [Normal Saline] 100 ml IV ASDIRECTED - Assessment/Plan Last 24 Hours: My Active Orders 08/27/19 18:10 CULTURE BLOOD [BC] Stat 08/27/19 19:44 Chest 1V Frontal [CR] Stat 08/27/19 19:47 EKG Documentation Completion [RC] STAT 08/27/19 19:57 Blood Culture x2 Reflex Set [OM.PC] Stat 08/27/19 20:27 CULTURE BLOOD [BC] Stat 08/27/19 21:20 Ang Chest [CT] Stat 08/27/19 21:31 Sodium Chloride 0.9% [Saline Flush] 10 ml FLUSH ONETIME PRN 08/27/19 21:45 Sodium Chloride 0.9% [Normal Saline] 100 ml IV ASDIRECTED
[2019-08-27] MEDS ORDERED: Iopamidol 755 Mg/ML 100 ML Bottle IVPUSH ONE (21:31)
[2019-08-27] MEDS ORDERED: Sodium Chloride 0.9% 10 ML Syringe FLUSH PRN (21:31)
[2019-08-27] MEDS ORDERED: Sodium Chloride 0.9% 100 ML IV SCH (21:45)
--- NOTE | 2019-08-28 07:23 | CT ---
CT chest Technique: Multiple axial sections through the chest were obtained. Study performed as a pulmonary angiogram protocol. Intravenous contrast was therefore utilized. Comparison: Prior noncontrast chest CT study of 08/23/19 and prior noncontrast chest CT study of 01/04/16. Findings: Mediastinal adenopathy is again seen. This appears to be stable. Small right-sided pleural effusion is seen. Increased density is seen within the right lung base. Findings could represent thick area of atelectasis as well as pneumonia. Right hemidiaphragm is also elevated. Pulmonary arteries show no filling defects. No evidence of pulmonary embolism is seen. Aorta shows no aneurysm. Heart is mildly enlarged. Multiple metallic shot noted within the upper abdomen. Bone window settings were reviewed which showed no acute osseous finding. Several old healed rib fractures are noted. Impression: 1. Small right sided pleural effusion with increased density within the right lung base compatible with atelectasis or pneumonia. This appears stable from previous exam. 2. Adenopathy within the mediastinum which appears stable. 3. Cardiomegaly and other findings which are nonacute. 4. No findings of pulmonary embolism. Diagnostic code #3 This report was dictated in [place] Standard Time I agree with preliminary report from [facility], finalized on 08/27/19, 11:44 PM Central Time
--- NOTE | 2019-08-28 07:23 | CR ---
Chest: Portable view of the chest was obtained. Comparison: Previous chest x-ray of 08/23/19. Continuing increased density within the right lung base is noted. Findings are stable from prior chest x-ray. Left lung base is clear. Heart is enlarged. Upper mediastinum is stable. Bony structures are unremarkable. Elevated right hemidiaphragm is seen. Metallic shot is noted within the upper abdomen. Impression: 1. Continuing increased density within the right lung base. Findings are stable from prior chest x-ray. 2. Elevated elevated right diaphragm is noted which is stable. 3. Stable cardiomegaly. Other findings as noted above are also stable. Diagnostic code #3 This report was dictated in [place] Standard Time
== END 2019-08-27 23:00 ==
LOC: JD.ED 19:27
DX: R09.02 Hypoxemia (principal); E11.22 Type 2 diabetes mellitus with diabetic chronic kidney disease; I12.0 Hypertensive chronic kidney disease with stage 5 chronic kidney disease or end stage renal disease; N18.6 End stage renal disease; E11.21 Type 2 diabetes mellitus with diabetic nephropathy; Z79.2 Long term (current) use of antibiotics; Z79.4 Long term (current) use of insulin; Z79.82 Long term (current) use of aspirin; Z79.899 Other long term (current) drug therapy
CPT/HCPCS: 36415; 36600; 71045; 71275; 80053; 82803; 83605; 83880; 84484; 85007; 85027; 85610; 85730; 87040; 93005; 99285; J7050; Q9967; 93010; 99283

== ENCOUNTER 2019-09-10 14:50 | Emergency (ER) | payer BC ==
[2019-09-10] MEDS ORDERED: Sodium Chloride 0.9% 10 ML Syringe FLUSH PRN (16:04)
[2019-09-10] MEDS ORDERED: HYDROmorphone 1 MG/ML Syringe IVPUSH ONE (16:07)
[2019-09-10] MEDS ORDERED: Ondansetron 4 MG/2 ML SDV IVPUSH ONE (16:07)
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
[2019-09-10 19:17] VITALS: BP 158/68; PULSE 80
== END 2019-09-10 19:10 | disposition home or self-care (01) ==
LOC: JD.ED 14:50
DX: N39.0 Urinary tract infection, site not specified (principal); B96.20 Unspecified Escherichia coli [E. coli] as the cause of diseases classified elsewhere; E11.9 Type 2 diabetes mellitus without complications; E11.22 Type 2 diabetes mellitus with diabetic chronic kidney disease; E11.21 Type 2 diabetes mellitus with diabetic nephropathy; I12.9 Hypertensive chronic kidney disease with stage 1 through stage 4 chronic kidney disease, or unspecified chronic kidney disease; N18.9 Chronic kidney disease, unspecified; Z79.4 Long term (current) use of insulin; Z79.82 Long term (current) use of aspirin; Z79.899 Other long term (current) drug therapy
CPT/HCPCS: 36415; 51702; 51798; 74176; 80053; 81001; 83605; 83690; 85025; 87040; 87086; 87088; 87186; 96374; 96375; 99284; J1170; J2405; 99283

== ENCOUNTER 2020-02-07 11:04 | Emergency (ER) | payer BC ==
--- NOTE | 2020-02-07 14:45 | EDM.PDOC ---
ED HPI GENERAL MEDICAL PROBLEM - General Chief Complaint: CPR in Progress Stated Complaint: REG AMBULANCE Time Seen by Provider: 02/07/20 11:05 Source of Information: Reports: EMS History Limitations: Reports: Other (Patient was pronounced on arrival.) - History of Present Illness INITIAL COMMENTS - FREE TEXT/NARRATIVE: 54-year-old male with known severe cardiovascular disease having experienced multiple cardiac arrests in the past and is a hemodialysis patient presented to the ED per ambulance. [place] of [place]. He was traveling with his father and brother in route to [place] for his hemodialysis treatment and made it only to the mailbox from the house when the brother appreciated that he was no longer breathing. It went back to the house and they performed CPR for approximately 25 minutes until the paramedics arrived. Paramedics identified him to be in PEA and he had multiple doses of epinephrine given my understanding was 3-5 doses were given through an IO right leg. He then went into asystole and all 3 leads were checked. I was then contacted by phone and elected to discontinue resuscitative efforts in the field. Patient was brought to the ED as he was already in the ambulance in route to [place] when paramedics called me. Patient was therefore referred to the heddle machine operator Dr. Romeo acting heddle machine operator who will attend him in the ED. announced at the time of arrival which I believe was 1105. Onset: Today Onset Date: 02/07/20 Onset Time: 11:05 Duration: Other (Pronounced at 1105 hrs.) - Related Data Allergies Allergy/AdvReac Type Severity Reaction Status Date / Time No Known Allergies Allergy Verified 08/27/19 19:36 Home Meds: Home Meds Insulin Aspart [NovoLOG] 1 - 13 units SQ ASDIRECTED PRN 01/13/18 [History] Insulin Glargine,Hum.Rec.Anlog [[place] Solostar] 45 units SQ QAM 01/13/18 [ History] Aspirin 81 mg PO DAILY 08/23/19 [History] Calcium Acetate 1,334 mg PO TID 08/23/19 [History] Gabapentin [Neurontin] 300 mg PO TID 08/23/19 [History] Magnesium Oxide 250 mg PO DAILY 08/23/19 [History] Metoprolol Succinate 12.5 mg PO BID 08/23/19 [History] amLODIPine [Norvasc] 10 mg PO DAILY 08/23/19 [History] atorvaSTATin [Lipitor] 10 mg PO DAILY 08/23/19 [History] cephALEXin [Keflex] 250 mg PO Q12H #18 capsule 08/23/19 [Rx] traZODone HCl [Trazodone HCl] 50 mg PO BEDTIME PRN 08/23/19 [History] Sulfamethoxazole/Trimethoprim [Bactrim Ds Tablet] 1 each PO BID #14 tablet 09/14 [Rx] Past Medical History HEENT History: Reports: Cataract, Other (See Below) Other HEENT History: left eye hemmorage-drained Cardiovascular History: Reports: Hypertension, Other (See Below) Other Cardiovascular History: cardiac arrest May 2019, intubated Respiratory History: Reports: None, Intubation, Previous Gastrointestinal History: Reports: None Genitourinary History: Reports: Chronic Renal Insuffiency, Dialysis, Diabetic Nephropathy Other Genitourinary History: dialysis shunt to the left inner wrist area; also has a catheter to the left chest wall for dialysis and currently using both sites for dialysis Endocrine/Metabolic History: Reports: Diabetes, Type II Oncologic (Cancer) History: Reports: None - Past Surgical History HEENT Surgical History: Reports: Cataract Surgery GI Surgical History: Reports: Appendectomy, Colon, Other (See Below) Other GI Surgeries/Procedures: fistula repair Musculoskeletal Surgical History: Reports: Other (See Below) Social & Family History - Family History Family Medical History: Noncontributory - Caffeine Use Caffeine Use: Reports: Coffee, Soda - Living Situation & Occupation Living situation: Reports: Single Occupation: Unemployed ED ROS GENERAL - Review of Systems Review Of Systems: Unable To Obtain (Patient is ) Reason Not Obtained: Patient is at the time of arrival in the ED ED EXAM, CPR - Physical Exam Exam: See Below Limited By: Other (And pronounced at the time of arrival) General Appearance: Other (Patient pronounced at the time of arrival.) Eye Exam: Bilateral Eye: Other (Patient's pupils are fixed and dilated) Respiratory Chest: Other (No respiratory sounds.) Cardiovascular: Other (Absence of carotid pulses on exam.) 0: Right Carotid, Left Carotid, Posterior-Tibial (R), Posterior-Tibial (L), Dorsalis-Pedis (R), Dorsalis-Pedis (L) Extremities: Other (Device right anterior tib-fib.) Skin Exam: Cool Departure - Departure Time of Disposition: 14:43 Disposition: 20 Condition: Critical Clinical Impression: Chronic kidney disease with end stage renal failure on dialysis, Cardiac arrest - Discharge Information *PRESCRIPTION DRUG MONITORING PROGRAM REVIEWED*: Not Applicable *COPY OF PRESCRIPTION DRUG MONITORING REPORT IN PATIENT JAMAL: Not Applicable Referrals: PCP,None [Primary Care Provider] - Additional Instructions: Patient was pronounced at the time of arrival in the ED. Resuscitative efforts had been discontinued in the ambulance in route to [place] at my request after consultation with paramedics due to the length of time and the fact that he was in asystole. Pronounced upon arrival in the ED which I believe is [address] Juan Resendiz acting heddle machine operator will now take over on the case
== END 2020-02-07 14:00 | disposition expired ==
LOC: JD.ED 11:04
DX: I46.9 Cardiac arrest, cause unspecified (principal); I12.0 Hypertensive chronic kidney disease with stage 5 chronic kidney disease or end stage renal disease; E11.22 Type 2 diabetes mellitus with diabetic chronic kidney disease; N18.6 End stage renal disease; E11.21 Type 2 diabetes mellitus with diabetic nephropathy; Z90.49 Acquired absence of other specified parts of digestive tract; Z99.2 Dependence on renal dialysis
CPT/HCPCS: 99285